=== PATIENT | female | born 1950 | race African-American/Black ===

== ENCOUNTER 2017-06-13 07:12 | Day surgery (SDC) | payer OTHER, MEDICARE ==
[2017-06-12 14:54] VITALS: BMI 21.9
[2017-06-13 12:33] VITALS: TEMP 98.6
[2017-06-13 16:07] VITALS: BP 120/77; PULSE 72
== END 2017-06-13 14:30 | disposition home or self-care (01) ==
LOC: JASU-SURG 07:12
PROVIDERS: ATTEND Obstetrics & Gynecology
PROC: 0UBC7ZX Excision of Cervix, Via Natural or Artificial Opening, Diagnostic (ICD-10-PCS; principal; 2017-06-13)
PROC: 0UB97ZX Excision of Uterus, Via Natural or Artificial Opening, Diagnostic (ICD-10-PCS; 2017-06-13)
PROC: 0UDB7ZX Extraction of Endometrium, Via Natural or Artificial Opening, Diagnostic (ICD-10-PCS; 2017-06-13)
PROC: 0UJD8ZZ Inspection of Uterus and Cervix, Via Natural or Artificial Opening Endoscopic (ICD-10-PCS; 2017-06-13)
DX: N85.00 Endometrial hyperplasia, unspecified (principal); N84.0 Polyp of corpus uteri; N84.1 Polyp of cervix uteri
CPT/HCPCS: 36415; 84132; 88305-TC; 94760